=== PATIENT | male | born 1995 | race Asian ===

== ENCOUNTER 2017-12-02 20:28 | Emergency (ER) | payer OTHER ==
[2017-12-02] MEDS: KETOROLAC TROMETHAMINE 10 MG TAB PO (22:03)
== END 2017-12-02 22:11 | disposition home or self-care (01) ==
LOC: M ED 20:28
DX: S90.32XA Contusion of left foot, initial encounter (principal); W20.8XXA Other cause of strike by thrown, projected or falling object, initial encounter; Y92.39 Other specified sports and athletic area as the place of occurrence of the external cause
CPT/HCPCS: 73630